=== PATIENT | male | born 1965 | race Caucasian/White ===

== ENCOUNTER 2021-08-28 09:17 | Emergency (ER) | payer MEDICARE ==
[~2021-08-28] VITALS: Ht 193 cm; Wt 81.0 kg
[2021-08-28 10:05] VITALS: BP 150/93
[2021-08-28] MEDS ORDERED: PERM60CR4 TOP (10:08)
== END 2021-08-28 10:39 | disposition home or self-care (01) ==
LOC: ER 09:19
DX: B86 Scabies (principal); F17.210 Nicotine dependence, cigarettes, uncomplicated; F12.90 Cannabis use, unspecified, uncomplicated; Z56.0 Unemployment, unspecified; Z59.00 Homelessness unspecified; Z79.899 Other long term (current) drug therapy
CPT/HCPCS: 99283